=== PATIENT | female | born 1950 | race Caucasian/White ===

== ENCOUNTER 2020-12-25 11:25 | Outpatient (CLI) | payer MEDICARE, SELFPAY ==
--- NOTE | ~2020-12-25 | XR_ITS ---
EXAMINATION: XR lumbar spine 2-3V DATE: 12/25/2020 11:45 INDICATION: Low back pain radiating into the left buttock TECHNIQUE: Anteroposterior and lateral views of the lumbar spine, and cone-down lateral view of the l umbosacral junction were obtained. COMPARISON: 10/29/2018 FINDINGS: 10 degree lumbar dextroscoliosis measured between T12 and L3. Sagittal alignment is normal. Vertebral body heights are normal. Moderate disc height loss from T12-L1 through L3-L4 and moderate to severe disc height loss at L4-L5 and L5-S1. Moderate to severe lower lumbar facet osteoarthritis. Visualized sacrum is unremarkable. IMPRESSION: 1. Mild lumbar dextroscoliosis with moderate to severe lumbar spondylosis which has progressed in the mid upper lumbar spine Reviewed, dictated and finalized at location A.
== END 2020-12-25 11:26 | disposition home or self-care (01) ==
PROVIDERS: PCP Family Medicine; Visit Provider Family Medicine
DX: M47.896 Other spondylosis, lumbar region (principal)
CPT/HCPCS: 72100